=== PATIENT | male | born 1965 | race Caucasian/White ===

== ENCOUNTER 2024-07-31 16:57 | Emergency (ER) | payer OTHER, SELFPAY ==
[2024-07-31 17:02] VITALS: BP 148/118
[2024-07-31 17:33] VITALS: BMI 28.3
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
[2024-07-31 20:00] VITALS: BP 132/94
== END 2024-07-31 20:44 | disposition home or self-care (01) ==
LOC: EMR 16:57
PROVIDERS: EMERGENCY PHYSICIAN Emergency Medicine; FAMILY PHYSICIAN Family Medicine
DX: M54.2 Cervicalgia (principal); M54.6 Pain in thoracic spine; V89.2XXA Person injured in unspecified motor-vehicle accident, traffic, initial encounter; Y92.410 Unspecified street and highway as the place of occurrence of the external cause
CPT/HCPCS: 99284; 72125; 73630